=== PATIENT | female | born 1940 | race Hispanic/Latino ===

== ENCOUNTER 2017-08-29 06:43 | Day surgery (SDC) | payer MEDICARE, BC ==
[2017-08-28 13:05] VITALS: BMI 31.8
[2017-08-29 07:19] LABS: #Basophils 0.1 thou/uL (0.0-0.2); #Eosinphils 0.1 thou/uL (0.0-0.7); #Lymphocytes 2.4 thou/uL (1.20-3.40); #Monocytes 0.6 thou/uL (0.11-0.59); #Neutrophils 5.7 thou/uL (1.40-6.50); %Basophils 0.9 % (0.0-1.0); %Lymphocytes 27.4 % (21.0-51.0); %Monocytes 6.8 % (0.0-10.0); %Neutrophils 63.9 % (42.0-75.0); Hemoglobin 13.8 g/dL (12.0-16.0); Mean Corpuscular HGB CONC 32.4 g/dL (32.0-36.0); Mean Corpuscular Hemoglobin 28.9 pg (27.0-31.0); Mean Corpuscular Volume 89.4 fl (81.0-99.0); Mean Platelet Volume 7.9 fL (7.4-10.4); Platelet Count 255 thou/uL (130-400); RBC Distribution Width 13.6 % (11.5-14.5); Red Blood Cell (RBC) Count 4.77 mill/uL (4.20-5.40); White Blood Cell (WBC) Count 8.9 thou/uL (4.8-10.8)
[2017-08-29] MEDS ORDERED: Promethazine 25 MG TAB ONE (07:19)
[2017-08-29] MEDS ORDERED: Diazepam 5 MG TAB ONE (07:19)
[2017-08-29 07:27] LABS: INR-International Normal Ratio 1.3; PTT 31.9 SEC (22.9-36.1); Prothrombin Time 16.1 SEC (12.0-14.7)
[2017-08-29 07:45] LABS: ALT (SGPT) 12 U/L (8-55); AST (SGOT) 15 U/L (5-34); Albumin 4.2 g/dL (3.4-4.8); Alkaline Phosphatase 69 U/L (40-150); Anion Gap 11 mmol/L (10-20); BUN (Urea Nitrogen) 12 mg/dL (9.8-20.1); Bilirubin, Total 0.6 mg/dL (0.2-1.2); Calc. Creatinine Clearance 82 mL/min (70-130); Calcium 9.5 mg/dL (7.8-10.44); Carbon Dioxide 25 mmol/L (23-31); Cardiac Risk 3.1 (Less than 4.5); Chloride 107 mmol/L (98-107); Cholesterol 133 mg/dl (< 200 Desired); Estimated GFR-MDRD 72; Globulin 2.9 g/dL (2.4-3.5); Glucose 144 mg/dL (83-110); HDL Cholesterol 43 mg/dL (>60 Neg Risk); LDL Cholesterol, Calculated 65 mg/dL; Potassium 4.2 mmol/L (3.5-5.1); Protein, Total 7.1 g/dL (6.0-8.3); Sodium 139 mmol/L (136-145); Triglycerides 127 mg/dL (Less than 150)
[2017-08-29] MEDS ORDERED: Diazepam 5 MG TAB PO SCH (07:45)
[2017-08-29] MEDS ORDERED: Sodium Chloride 0.9% 1,000 ML IV SCH (07:45)
[2017-08-29] MEDS ORDERED: Promethazine 25 MG TAB PO SCH (07:45)
[2017-08-29] MEDS ORDERED: HOLD HYPOGLYCEMIC MEDS AM OF CATH FS SCH (07:45)
[2017-08-29] MEDS ORDERED: Verapamil 5 MG/2 ML VIAL ONE (11:51)
[2017-08-29] MEDS ORDERED: Heparin 10,000 UNITS/1 ML VIAL ONE (11:51)
[2017-08-29] MEDS ORDERED: Nitroglycerin 100MG/250ML BOT 250 ML ONE (11:51)
[2017-08-29] MEDS ORDERED: Midazolam HCl 2 mg/2 ml Vial ONE (11:52)
[2017-08-29] MEDS ORDERED: Fentanyl 100 MCG/2 ML VIAL ONE (11:52)
--- NOTE | 2017-08-29 17:11 | RAD ---
PORTABLE AP CHEST X-RAY 08/29/17 HISTORY: Preoperative evaluation. COMPARISON: 11/06/16 FINDINGS: The cardiac silhouette and pulmonary vasculature are within normal limits. Right hemidiaphragm remain s mildly elevated. Lungs are clear. There has been no interval change from the prior study. IMPRESSION: No acute cardiopulmonary process. POS: [facility]
--- NOTE | 2017-08-29 19:40 | CON ---
DATE OF CONSULTATION: 08/29/2017 HISTORY OF PRESENT ILLNESS: Ms. Manzano was admitted for an elective cardiac catheterization. She vargas s a history of atrial fibrillation and takes Eliquis. She last took her Eliquis on 08/28/2017. She also has a history of recent ventricular tachycardia which led to her having cardiac catheterizat ion today. She has a history of coronary artery disease, status post intervention to her LAD and rig ht coronary artery. Echocardiogram showed ejection fraction of approximately 45%. Her stress test s howed lateral wall scar. Cardiac catheterization today shows severe LAD, right coronary artery, and circumflex stenoses. Ejec tion fraction on ventriculogram is approximately 45%. I have been asked to see her to discuss [place] bypass grafting. Potential targets include an LAD, PDA and OM. PAST MEDICAL HISTORY: 1. Hypertension. 2. Atrial fibrillation. 3. Coronary artery disease. 4. Dyslipidemia. 5. Diabetes mellitus. PAST SURGICAL HISTORY: None. CURRENT MEDICATIONS: 1. Metformin 500 mg b.i.d. 2. Metoprolol 25 mg every day. 3. Aspirin 81 mg daily. 4. Eliquis 5 mg b.i.d. 5. Crestor 20 mg at bedtime. 6. Lisinopril 20 mg every day. ALLERGIES: None. SOCIAL HISTORY: She does not use tobacco. She lives with multiple family members. REVIEW OF SYSTEMS: Ten point review of system is performed and is negative except as above. PHYSICAL EXAMINATION: GENERAL: Well-developed, well-nourished woman, resting comfortably in the recovery room. VITAL SIGNS: Her heart rate is 80 and regular, blood pressure is 176/82. HEENT: Sclerae nonicteric. Pupils equal, round bilaterally. NECK: Supple, without bruit. CHEST: Clear bilaterally. HEART: Rhythm is regular, without murmur. ABDOMEN: Soft and nontender, without mass. EXTREMITIES: No edema. VASCULAR: Palpable carotid, radial, femoral, and dorsalis pedis pulses bilaterally. VENOUS: There are no venous varicosities or venous stasis changes. LYMPHATICS: No lymphedema or lymphadenopathy. PSYCHIATRIC: The patient is awake, alert, and oriented to person, place, and time. LABORATORY DATA: Creatinine is 0.78, potassium is 4.2. Hemoglobin is 13.8, platelet count 255,000. ASSESSMENT AND PLAN: This is a pleasant 76-year-old diabetic woman status post multiple intervention s with recurrent coronary artery disease. She has had increasing levels of fatigue and shortness of breath at home. Coronary bypass grafting has been recommended. She will need to be off her Eliquis for 5 days prior to surgery. We have planned for elective admission on Sunday and bypass as above.
--- NOTE | 2017-08-30 00:53 | EKG ---
Test Reason : PREOP Blood Pressure : / mmHG Vent. Rate : 066 BPM Atrial Rate : 066 BPM P-R Int : 174 ms QRS Dur : 090 ms QT Int : 430 ms P-R-T Axes : 000 015 -45 degrees QTc Int : 450 ms Normal sinus rhythm Nonspecific T wave abnormality Abnormal ECG When compared with ECG of 06-NOV-2016 20:10, Non-specific change in ST segment in Inferior leads Nonspecific T wave abnormality now evident in Inferior leads T wave inversion now evident in Lateral leads Confirmed by FRANCIS RUANO, DR. Huerta ([id number]) on 08/30/2017 12:52:52 AM Referred By: KYE Confirmed By:DR. Deanna BLANCO MD
== END 2017-08-29 17:14 | disposition home or self-care (01) ==
LOC: CCL 06:43
PROVIDERS: ATTEND Internal Medicine Cardiovascular Disease
DX: I47.2 Ventricular tachycardia (principal); I10 Essential (primary) hypertension; I48.0 Paroxysmal atrial fibrillation; E11.9 Type 2 diabetes mellitus without complications; E78.5 Hyperlipidemia, unspecified; R06.02 Shortness of breath; Z82.49 Family history of ischemic heart disease and other diseases of the circulatory system; Z79.01 Long term (current) use of anticoagulants; Z79.899 Other long term (current) drug therapy; Z79.84 Long term (current) use of oral hypoglycemic drugs
CPT/HCPCS: 71045; 80053; 80061; 85025; 85610; 85730; 93005; 93458; C1769 ×2; 93010; 99152; J1644; J2250; J3010

== ENCOUNTER 2017-08-31 11:59 | Outpatient (CLI) | payer MEDICARE, BC | END 2017-08-31 12:00 | disposition home or self-care (01) | LOC: LABBT 11:59 | PROVIDERS: ATTEND Thoracic Surgery (Cardiothoracic Vascular Surgery) | DX: Z01.812 Encounter for preprocedural laboratory examination (principal); I25.10 Atherosclerotic heart disease of native coronary artery without angina pectoris | CPT/HCPCS: 86850; 86900; 86901 ==

== ENCOUNTER 2017-09-03 05:46 | Inpatient (IN) | payer MEDICARE, BC ==
[2017-09-03] MEDS ORDERED: CEFAZOLIN/Water 2 GM/20 ML SYRINGE ONE (06:20)
[2017-09-03] MEDS ORDERED: Albumin 5% 500 ML ONE (06:40)
[2017-09-03] MEDS ORDERED: Heparin 10,000 UNITS/1 ML VIAL 30,000 UNITS in Sodium Chloride 0.9% 1,000 ML FS SCH (07:00)
[2017-09-03] MEDS ORDERED: Fentanyl 100 MCG/2 ML VIAL ONE ×2 (07:09)
[2017-09-03] MEDS ORDERED: Midazolam HCl 5 mg/5 ml Vial ONE (07:10)
[2017-09-03] MEDS ORDERED: Insulin Regular 300 UNITS/3 ML VIAL ONE (07:10)
[2017-09-03] MEDS ORDERED: Phenylephrine 10 MG/NS 250 ML 0 ML ONE (07:10)
[2017-09-03] MEDS ORDERED: Vecuronium 10 MG VIAL ONE ×2 (10:01→15:48)
[2017-09-03] MEDS ORDERED: Bisacodyl 5 MG TAB PO PRN (12:35)
[2017-09-03] MEDS ORDERED: Hetastarch 6% 500 ML 500 ML IVPB PRN (12:35)
[2017-09-03] MEDS ORDERED: Norepinephrine 8 MG/0.9% NS 250 ML IVPB PRN (12:35)
[2017-09-03] MEDS ORDERED: Acetaminophen 325 MG TAB PO PRN (12:35)
[2017-09-03] MEDS ORDERED: Promethazine HCl 25 MG/ML VIAL IM PRN (12:35)
[2017-09-03] MEDS ORDERED: Nitroglycerin 50 MG/250 ML BOT 250 ML IVPB PRN (12:35)
[2017-09-03] MEDS ORDERED: D5 1/2 NS w/20 mEq KCL 1,000 ML IV SCH (12:35)
[2017-09-03] MEDS ORDERED: Fentanyl 100 MCG/2 ML VIAL SLOW IVP PRN ×2 (12:35)
[2017-09-03] MEDS ORDERED: Morphine 4 MG/ML Carpuject SLOW IVP PRN (12:35)
[2017-09-03] MEDS ORDERED: hydrALAZINE 20 MG/ML VIAL SLOW IVP PRN (12:35)
[2017-09-03] MEDS ORDERED: Guaifenesin DM 100-10/5 ML UDCUP PO PRN (12:35)
[2017-09-03] MEDS ORDERED: HYDROcodone/Acetaminophen 5/325 mg Tablet PO PRN (12:35)
[2017-09-03] MEDS ORDERED: Mag-Al 1200 mg/1200 mg/30 ML UDCUP PO PRN (12:35)
[2017-09-03] MEDS ORDERED: Bisacodyl 10 MG SUPP PR PRN (12:35)
[2017-09-03] MEDS ORDERED: Post-Op Insulin Drip Protocol IVPB ONE (12:35)
[2017-09-03] MEDS ORDERED: Dextrose 5% in Water 1,000 ML IV PRN (12:44)
[2017-09-03] MEDS ORDERED: Dextrose 50% Abboject 50 ML SYRINGE SLOW IVP PRN (12:44)
[2017-09-03] MEDS ORDERED: Magnesium 2 GM/NS 0.9% 100 ML 2 GM in Premix Bag 1 BAG IVPB SCH (12:45)
[2017-09-03 13:05] LABS: Anion Gap 13 mmol/L (10-20); BUN (Urea Nitrogen) 11 mg/dL (9.8-20.1); Calc. Creatinine Clearance 95 mL/min (70-130); Carbon Dioxide 21 mmol/L (23-31); Chloride 113 mmol/L (98-107); Estimated GFR-MDRD 85; Glucose 133 mg/dL (83-110); Hemoglobin 10.7 g/dL (12.0-16.0); Mean Corpuscular HGB CONC 32.4 g/dL (32.0-36.0); Mean Corpuscular Hemoglobin 29.4 pg (27.0-31.0); Mean Corpuscular Volume 90.6 fl (81.0-99.0); Mean Platelet Volume 8.1 fL (7.4-10.4); Platelet Count 204 thou/uL (130-400); Potassium 3.9 mmol/L (3.5-5.1); RBC Distribution Width 13.8 % (11.5-14.5); Red Blood Cell (RBC) Count 3.64 mill/uL (4.20-5.40); Sodium 143 mmol/L (136-145); White Blood Cell (WBC) Count 24.1 thou/uL (4.8-10.8)
[2017-09-03 13:10] LABS: INR-International Normal Ratio 1.5; PTT 33.5 SEC (22.9-36.1)
[2017-09-03] MEDS: Insulin Regular 300 UNITS/3 ML VIAL SC PRN (13:11)
[2017-09-03] MEDS: Ondansetron HCl/PF 4 MG/2 ML Vial IVP PRN ×2 (13:14→21:31)
[2017-09-03 13:17] LABS: Actual Bicarbonate (HCO3a) 21.4 mEq/L (22-26); Base Excess (BEa) -3.8 mEq/L (0 (+/-) 2.5); CO2 Tension 39.6 mmHg (35.0-45.0); Hemoglobin (Hb) 11.2 g/dL (12.0-16.0); O2 Tension (PaO2) 142.9 mmHg (80.0-100.0); pH, Arterial 7.35 (7.35-7.45)
[2017-09-03 13:18] LABS: Calcium, Ionized 1.1 mmol/L (1.12-1.30); Puncture Site ALINE
[2017-09-03 13:22] LABS: Band 15 % (5-11); Lymphocytes 5 % (21-51); MDiff Complete? YES; Metamyelocyte 2 % (0-0); Monocytes 8 % (0-10); Neutrophil 69 % (42-75); PLT Morphology Comment Appears Adequate; RBC Morphology Normal
[2017-09-03] MEDS ORDERED: Ketorolac Tromethamine 30 MG/ML VIAL IVP SCH (13:30)
[2017-09-03] MEDS ORDERED: Norepinephrine 8 MG in Dextrose 5% in Water 250 ML IVPB PRN ×2 (13:59)
[2017-09-03] MEDS: CEFAZOLIN/Water 2 GM/20 ML SYRINGE SLOW IVP SCH ×2 (14:20→21:35)
--- NOTE | 2017-09-03 14:30 | OP ---
DATE OF OPERATION: 09/03/2017 PREOPERATIVE DIAGNOSES: 1. Coronary artery disease/history of paroxysmal atrial fibrillation. 2. Diabetes mellitus. 3. Hypertension. 4. Hyperlipidemia. POSTOPERATIVE DIAGNOSES: 1. Coronary artery disease/history of paroxysmal atrial fibrillation. 2. Diabetes mellitus. 3. Hypertension. 4. Hyperlipidemia. PROCEDURES: 1. Epicardial maze with ligation of left atrial appendage. 2. Coronary artery bypass grafting x3 - A. Left internal mammary artery to 1.25 mm diffusely diseased LAD - good conduit. B. Reverse saphenous vein to 2.0 mm diffusely diseased OM - good conduit. 3. Reverse saphenous vein to 1.25 mm diffusely diseased PDA - good conduit. SURGEON: Blaine Charles M.D. and Joaquin David M.D. ANESTHESIA: General endotracheal - Dr. González Burch. PUMP TIME: 65 minutes. CROSS-CLAMP TIME: 33 minutes. LOW CORE TEMPERATURE: 32 degrees Celsius. KENNEL AIDE: Arelis Erazo. DRAINS: 24-[place] chest tubes x2. DRIPS: None. TRANSFUSIONS: None. DESCRIPTION OF PROCEDURE: After consent was obtained, the patient was brought to the operating room and placed in supine position on the operating room table. Appropriate anesthetic monitor was placed and general endotracheal anesthesia induced. Chest, abdomen, and legs were prepped and draped in [facility] sterile fashion. Greater saphenous vein was harvested from both legs to obtain adequate length o f saphenous vein that was usable for coronary artery bypass grafting. Wounds were irrigated and clos ed in layers. Median sternotomy was performed. Left internal mammary artery was harvested as a pedi ebony graft. The patient was systemically heparinized and distal pedicle divided and infused with papa verine. Thymic fat and pericardium were divided with electrocautery. Pericardial stay sutures were placed. Aortic and atrial cannulation was performed. After adequate heparinization, the patient was placed on cardiopulmonary bypass. Distal targets were marked. The aortic cross-clamp was applied a nd antegrade sanguinous cardioplegic arrest obtained. One liter of antegrade cold cardioplegia was g iven. The [place] cardioplegia was used. Topical cold solution was used. Reversed saphenous vein was anastomosed to the PDA in end-to-side fashion with running 7-0 Prolene suture. Anastomosis was t ested and was hemostatic. Reversed saphenous vein was anastomosed to the OM in end-to-side fashion w ith running 7-0 Prolene suture. Anastomosis was tested and was hemostatic. The left atrial pulmonar y venous junction and was ablated on both the left and right pulmonary veins x2 with the edotronic ep icardial ablation device. Left atrial appendage was ablated x1. Atrial appendage was then ligated w ith running dual-layered 4-0 Prolene suture. Mammary artery was brought through a window in the anna cardium and anastomosed to the distal LAD in end-to-side fashion with running 7-0 Prolene suture. On release of the mammary clamp, there was good hooding in the anastomosis and good distal flow. Pedic le was secured with interrupted 6-0 Prolene suture. Cross-clamp was removed and partial occluding cl amp placed. Saphenous veins were anastomosed individual punch sites with running 6-0 Prolene suture. Partial occluding clamp was removed and grafts deaired. Anastomoses were inspected for hemostasis, which was good. The patient was warmed and weaned from cardiopulmonary bypass. After resumption of sinus rhythm, good hemodynamics, and temperature greater than 36.5, bypass was discontinued. Transf usions were given. Protamine was administered. Decannulation was performed and pursestring sutures secured. Twenty-four [place] chest tubes were placed in the mediastinum x2. After adequate hemostasi s had been obtained, the sternum was closed with #7 wire. Sternum was treated with platelet-rich johnny sma and then wires were twisted. Wounds were irrigated, treated with platelet-poor plasma, and close d in layers. The patient tolerated the procedure well, and was transferred to the intensive care uni t in stable, but critical condition.
--- NOTE | 2017-09-03 14:39 | RAD ---
PORTABLE CHEST: History: Post op sternotomy follow up. Comparison: 05-29-18 FINDINGS/IMPRESSION: Post op sternotomy wires are noted. ET tube is in place with tip above the derek. Central line overl ies the SVC. The lungs appear well aerated. There is patchy atelectasis and/or infiltrate in the left lung base and there is suggestion of small left effusion. POS: [facility]
[2017-09-03] MEDS: Potassium Chloride 20 MEQ/100 ML PREMIX BAG IVPB PRN (15:13)
[2017-09-03] MEDS ORDERED: Nitroglycerin 50 MG/250 ML BOT ONE (15:48)
[2017-09-03] MEDS ORDERED: Papaverine 60 MG/2 ML VIAL ONE (15:48)
[2017-09-03] MEDS ORDERED: Protamine Sulfate 250 MG/25 ML VIAL ONE (15:48)
[2017-09-03] MEDS ORDERED: Cardioplegic Soln 1,000 ML BAG ONE (15:48)
[2017-09-03] MEDS ORDERED: Aminocaproic Acid 5 GM/20 ML VIAL ONE (15:48)
[2017-09-03] MEDS ORDERED: Heparin 5,000 UNITS/ML VIAL ONE (15:48)
[2017-09-03] MEDS ORDERED: Magnesium 5 GM/10 ML VIAL ONE (15:48)
[2017-09-03] MEDS ORDERED: Lidocaine 2% PF 100 mg/5 ml Syringe ONE (15:48)
[2017-09-03] MEDS ORDERED: PHENYLEPHRINE-NS 100 MCG/ML 10 ML SYRINGE ONE (15:48)
[2017-09-03] MEDS ORDERED: Potassium Chloride 60 MEQ/30 ML VIAL ONE (15:48)
[2017-09-03] MEDS ORDERED: Heparin 30,000 units/30 ml VIAL ONE (15:48)
[2017-09-03] MEDS ORDERED: Thrombin 5000 UNITS/5 ML VIAL ONE (15:48)
[2017-09-03] MEDS ORDERED: Propofol 200 MG/20 ML VIAL ONE (15:48)
[2017-09-03] MEDS ORDERED: Sodium Bicarb 50 MEQ/50 ML Abboject 8.4% SYRINGE ONE (15:48)
[2017-09-03] MEDS ORDERED: Calcium Chloride 1 GM/10 ML Abboject SYRINGE ONE (15:48)
[2017-09-03] MEDS ORDERED: Lidocaine 1% PF 5 ML VIAL ONE (15:48)
[2017-09-03 17:16] LABS: Actual Bicarbonate (HCO3a) 20.8 mEq/L (22-26); Base Excess (BEa) -3.6 mEq/L (0 (+/-) 2.5); CO2 Tension 34.8 mmHg (35.0-45.0); Calcium, Ionized 1.1 mmol/L (1.12-1.30); Hemoglobin (Hb) 9.7 g/dL (12.0-16.0); O2 Tension (PaO2) 220.8 mmHg (80.0-100.0); Puncture Site ALINE; pH, Arterial 7.39 (7.35-7.45)
[2017-09-03] MEDS: Ketorolac Tromethamine 30 MG/ML VIAL IVP SCH (18:30)
[2017-09-03] MEDS ORDERED: Famotidine/PF 20 mg/2ml Vial SLOW IVP SCH (21:00)
[2017-09-03] MEDS: Latanoprost 0.005% Ophth Soln 2.5 ml Bottle EA EYE SCH (21:30)
[2017-09-04] MEDS: Ketorolac Tromethamine 30 MG/ML VIAL IVP SCH ×4 (00:31→17:42)
[2017-09-04 05:33] LABS: #Lymphocytes 1.3 thou/uL (1.20-3.40); #Monocytes 1.3 thou/uL (0.11-0.59); #Neutrophils 10.7 thou/uL (1.40-6.50); Hemoglobin 9.4 g/dL (12.0-16.0); Mean Corpuscular Hemoglobin 28.4 pg (27.0-31.0); Mean Corpuscular Volume 91.6 fl (81.0-99.0); Mean Platelet Volume 8.5 fL (7.4-10.4); Platelet Count 178 thou/uL (130-400); RBC Distribution Width 13.9 % (11.5-14.5); Red Blood Cell (RBC) Count 3.31 mill/uL (4.20-5.40); White Blood Cell (WBC) Count 13.4 thou/uL (4.8-10.8)
[2017-09-04] MEDS: CEFAZOLIN/Water 2 GM/20 ML SYRINGE SLOW IVP SCH (05:34)
[2017-09-04 05:58] LABS: Anion Gap 10 mmol/L (10-20); BUN (Urea Nitrogen) 13 mg/dL (9.8-20.1); Calc. Creatinine Clearance 90 mL/min (70-130); Calcium 8.2 mg/dL (7.8-10.44); Carbon Dioxide 23 mmol/L (23-31); Chloride 112 mmol/L (98-107); Estimated GFR-MDRD 78; Glucose 124 mg/dL (83-110); Potassium 3.8 mmol/L (3.5-5.1); Sodium 141 mmol/L (136-145)
[2017-09-04] MEDS: Ondansetron HCl/PF 4 MG/2 ML Vial IVP PRN (06:03)
[2017-09-04 06:17] VITALS: BMI 32.4
[2017-09-04] MEDS: Metoclopramide HCl 10 MG/2 ML VIAL IVP SCH ×3 (07:57→19:05)
[2017-09-04] MEDS: HYDROcodone/Acetaminophen 5/325 mg Tablet PO PRN ×2 (08:24→21:43)
[2017-09-04] MEDS: Potassium Chloride 20 MEQ/100 ML PREMIX BAG IVPB PRN (08:34)
--- NOTE | 2017-09-04 08:45 | RAD ---
AP CHEST: History: Post open heart surgery. Date: 09-04-17 Comparison: 09-03-17 FINDINGS: AP chest demonstrates interval extubation of the patient. Sternotomy wires are seen. A right subclavi an central line is in place. There is a density over the left lung base compatible with a left sided pleural effusion. Pulmonary vascular congestion is noted. No other significant interval change is see n. There is also a left sided chest tube present. IMPRESSION: 1. Left sided chest tube in place with right subclavian central line. 2. Left sided pleural effusion with areas of opacity seen in the left lung base compatible with atele ctasis or pneumonia. POS: [facility]
[2017-09-04] MEDS ORDERED: Magnesium 2 GM/NS 0.9% 100 ML 2 GM in Premix Bag 1 BAG IVPB SCH (09:00)
[2017-09-04] MEDS ORDERED: Aspirin 325 MG TAB PO SCH (09:00)
[2017-09-04] MEDS ORDERED: Famotidine 20 MG TAB PO SCH (09:00)
--- NOTE | 2017-09-04 10:31 | PRG ---
DATE OF SERVICE: 09/04/2017 SUBJECTIVE: Ms. Manzano has been extubated. She is in good spirits. Chest tube has also been remove d. OBJECTIVE: CURRENT VITAL SIGNS: Blood pressure 120/48, temperature afebrile. LUNGS: Clear to auscultation. CARDIAC: Regular rate and rhythm. ABDOMEN: Soft, nontender, nondistended. EXTREMITIES: No edema. IMPRESSION: 1. Coronary artery disease. 2. Status post bypass surgery. 3. Diabetes mellitus. 4. Hypertension. RECOMMENDATIONS: 1. Add low-dose beta daly therapy. 2. Add statin therapy. 3. Routine ICU care. 4. Ambulation and incentive spirometry.
--- NOTE | 2017-09-04 11:15 | CON ---
DATE OF CONSULTATION: 09/04/2017 REASON FOR CONSULTATION: Cardiac care for recent bypass surgery. HISTORY OF PRESENT ILLNESS: Ms. Manzano is a very pleasant 76-year-old woman who was seen and evaluat ed in the past. She recently had coronary angiography and was found to have severe multivessel disea se. Bypass surgery was recommended. She underwent 4-vessel bypass by Dr. Blaine Charles on 8. She also underwent maze procedure with ligation of left atrial appendage. She underwent bypass s urgery with [employer] to the LAD, saphenous vein graft to OM, and saphenous vein graft to PDA. She is off all pressors. PAST MEDICAL HISTORY: Hyperlipidemia, hypertension, CAD, and obesity. PAST SURGICAL HISTORY: CAD status post stent placement to the LAD and right coronary artery. PTCA t o a diagonal branch. ALLERGIES: None. HOME MEDICATIONS: Include metformin, lansoprazole, metoprolol, aspirin, Eliquis, Crestor, and lisino pril. REVIEW OF SYSTEMS: Ten point review of systems unobtainable. She is currently intubated. PHYSICAL EXAMINATION: VITAL SIGNS: Blood pressure 114/50, pulse 90, temperature afebrile. GENERAL: She is currently intubated and sedated. NEUROLOGIC: The patient is alert and oriented times 3 with no focal neurologic deficits. HEENT: Sclerae without icterus. Mouth has moist mucous membranes with normal pallor. NECK: No JVD. Carotid upstroke brisk. No bruits bilaterally. LUNGS: Clear to auscultation with unlabored respirations. BACK: No scoliosis or kyphosis. CARDIAC: Regular rate and rhythm with normal S1 and S2. No S3 or S4 noted. No significant rubs, murmurs, thrills, or gallops noted throughout the precordium. PMI is not displaced. There is no parasternal heave. ABDOMEN: Soft, nontender, nondistended. No peritoneal signs present. No hepatosplenomegaly. No abnormal striae. EXTREMITIES: 2+ femoral and 2+ dorsalis pedis pulses. No cyanosis, clubbing, or edema. SKIN: No gross abnormalities. IMPRESSION: 1. Coronary artery disease. 2. Status post bypass surgery. 3. Diabetes mellitus. 4. Hypertension. RECOMMENDATIONS: 1. Routine ICU care and vent support. 2. Wean when appropriate. 3. Add beta daly therapy and statin therapy when extubated. We will continue to follow with you.
[2017-09-04] MEDS: Insulin Regular 300 UNITS/3 ML VIAL SC PRN ×2 (13:05→17:31)
[2017-09-04] MEDS ORDERED: Bisacodyl 10 MG SUPP PR PRN (20:45)
[2017-09-04] MEDS ORDERED: Artificial Tears 18 DROP/0.9 ML EA EYE PRN (20:45)
[2017-09-04] MEDS ORDERED: Zolpidem Tartrate 5 MG TAB PO PRN (20:45)
[2017-09-04] MEDS ORDERED: Bisacodyl 5 MG TAB PO PRN (20:45)
[2017-09-04] MEDS ORDERED: Mineral Oil ENEMA PR PRN (20:45)
[2017-09-04] MEDS ORDERED: Mag-Al 1200 mg/1200 mg/30 ML UDCUP PO PRN (20:45)
[2017-09-04] MEDS ORDERED: diphenhydrAMINE 25 MG CAP PO PRN (20:45)
[2017-09-04] MEDS ORDERED: Guaifenesin DM 100-10/5 ML UDCUP PO PRN (20:45)
[2017-09-04] MEDS ORDERED: Atorvastatin Calcium 40 MG TAB PO SCH (21:00)
[2017-09-04] MEDS ORDERED: Dextrose 5% in Water 1,000 ML IV PRN (21:15)
[2017-09-04] MEDS ORDERED: Dextrose 50% Abboject 50 ML SYRINGE SLOW IVP PRN (21:15)
[2017-09-04] MEDS: Rosuvastatin 20 MG TAB PO SCH (21:43)
[2017-09-04] MEDS: Latanoprost 0.005% Ophth Soln 2.5 ml Bottle EA EYE SCH (21:45)
--- NOTE | 2017-09-04 23:39 | EKG ---
Test Reason : POST CABG Blood Pressure : / mmHG Vent. Rate : 080 BPM Atrial Rate : 080 BPM P-R Int : 144 ms QRS Dur : 098 ms QT Int : 456 ms P-R-T Axes : -71 028 127 degrees QTc Int : 525 ms Unusual P axis, possible ectopic atrial rhythm T wave abnormality, consider lateral ischemia Prolonged QT Abnormal ECG When compared with ECG of 29-AUG-2017 07:38, Ectopic atrial rhythm has replaced Sinus rhythm QT has lengthened Confirmed by Jefe DESIR ([id number]) on 09/04/2017 11:39:11 PM Referred By: Haleigh SWAIN Confirmed By:Jefe DESIR
[2017-09-05] MEDS: Ketorolac Tromethamine 30 MG/ML VIAL IVP SCH ×4 (00:36→18:00)
[2017-09-05] MEDS: Metoclopramide HCl 10 MG/2 ML VIAL IVP SCH ×3 (00:37→13:27)
--- NOTE | 2017-09-05 08:52 | PRG ---
DATE OF SERVICE: 09/05/2017 SUBJECTIVE: Ms. Manzano is doing well. She has been transferred out of the ICU and is on telemetry m onitoring. She states she has been up into a chair. She is using incentive spirometry. She remains in sinus rhythm. PHYSICAL EXAMINATION: VITAL SIGNS: Blood pressure 129/61, pulse 79, temperature 98.2. LUNGS: Lungs are clear to auscultation. HEART: Regular rate and rhythm. ABDOMEN: Soft, nontender, nondistended. EXTREMITIES: No edema. PERTINENT LABORATORY: None today. IMPRESSION: 1. Coronary artery disease. 2. Status post bypass surgery. RECOMMENDATIONS: 1. Continue beta-dlay therapy and statin treatment. 2. Incentive spirometry and cardiac rehab.
[2017-09-05] MEDS: Aspirin 325 mg Enteric Coated Tablet PO SCH (09:15)
[2017-09-05] MEDS ORDERED: Furosemide 40 MG/4 ML VIAL SLOW IVP SCH (13:00)
[2017-09-05] MEDS: Latanoprost 0.005% Ophth Soln 2.5 ml Bottle EA EYE SCH (21:20)
[2017-09-05] MEDS: HYDROcodone/Acetaminophen 5/325 mg Tablet PO PRN (21:21)
[2017-09-05] MEDS: Rosuvastatin 20 MG TAB PO SCH (21:21)
[2017-09-05] MEDS: Insulin Regular 300 UNITS/3 ML VIAL SC PRN (21:22)
[2017-09-06] MEDS: Ketorolac Tromethamine 30 MG/ML VIAL IVP SCH ×4 (00:11→17:55)
[2017-09-06] MEDS: Aspirin 325 mg Enteric Coated Tablet PO SCH (08:44)
[2017-09-06] MEDS: Insulin Regular 300 UNITS/3 ML VIAL SC PRN ×2 (11:33→17:56)
--- NOTE | 2017-09-06 14:01 | PRG ---
DATE OF SERVICE: 09/06/2017 SUBJECTIVE: Ms. Manzano is doing well. She states she was ambulating without issues or difficulty. OBJECTIVE: VITAL SIGNS: Blood pressure 127/60, pulse 90, temperature 98.1. LUNGS: Clear to auscultation. HEART: Regular rate and rhythm. ABDOMEN: Soft, nontender, nondistended. EXTREMITIES: No edema. IMPRESSION: 1. Coronary artery disease. 2. Status post bypass surgery. RECOMMENDATIONS: 1. Continue beta daly therapy, statin treatment. 2. Incentive spirometry and rehab. 3. Home soon.
[2017-09-06] MEDS: Rosuvastatin 20 MG TAB PO SCH (21:16)
[2017-09-06] MEDS: Latanoprost 0.005% Ophth Soln 2.5 ml Bottle EA EYE SCH (21:16)
[2017-09-07] MEDS: Aspirin 325 mg Enteric Coated Tablet PO SCH (09:23)
--- NOTE | 2017-09-07 14:33 | DIS ---
DATE OF ADMISSION: 09/03/2017 DATE OF DISCHARGE: 09/07/2017 DIAGNOSES: 1. Coronary artery disease. 2. Diabetes mellitus. 3. Hyperlipidemia. 4. Hypertension. PROCEDURES: 1. Coronary artery bypass grafting x3. 2. Left internal mammary artery to LAD. 2. Reversed saphenous vein to OM. 3. Reversed saphenous vein to PDA. DESCRIPTION OF HOSPITAL STAY: Ms. Manzano was admitted for elective coronary bypass grafting. She vargas s done well postoperatively and being discharged to home in good condition to follow up with me in [address] [place] in a month. DISCHARGE MEDICATIONS: Include, 1. Aspirin 325 mg q. day. 2. Lisinopril 10 mg q. day. 3. Metformin 500 mg q. day. 4. Metoprolol 12.5 mg b.i.d. 5. Crestor 20 mg at bedtime.
--- NOTE | 2017-09-07 15:00 | PRG ---
DATE OF SERVICE: 09/07/2017 SUBJECTIVE: Ms. Manzano is doing well. No chest pain or pressure noted. She is ambulating. OBJECTIVE: VITAL SIGNS: Blood pressure 133/65, pulse 93 and temperature 98.9. LUNGS: Clear to auscultation. HEART: Regular rate and rhythm. ABDOMEN: Soft, nontender and nondistended. EXTREMITIES: No edema. IMPRESSION: 1. Coronary artery disease. 2. Status post bypass surgery. RECOMMENDATIONS: From a CV standpoint, she is on appropriate medical therapy. Continue 24 hours in ambulation.
[2017-09-07 16:38] VITALS: BP 137/66; TEMP 99.1
[2017-09-11 08:37] LABS: CO2 Tension 28.2 mmHg (35.0-45.0); O2 Tension (PaO2) 234.6 mmHg (80.0-100.0); pH, Arterial 7.49 (7.35-7.45)
[2017-09-11 08:41] LABS: Actual Bicarbonate (HCO3a) 20.9 mEq/L (22-26); Base Excess (BEa) -1.3 mEq/L (0 (+/-) 2.5); Hematocrit-ABG 39.1 % (36.0-47.0); Hemoglobin (Hb) 12.9 g/dL (12.0-16.0)
[2017-09-11 08:42] LABS: CO2 Tension 35.6 mmHg (35.0-45.0); pH, Arterial 7.38 (7.35-7.45)
[2017-09-11 08:42] LABS: Analyzer IN Cardio OR; Calcium, Ionized 1.2 mmol/L (1.12-1.30); Puncture Site ALINE
[2017-09-11 08:43] LABS: Actual Bicarbonate (HCO3a) 20.7 mEq/L (22-26); Analyzer IN Cardio OR; Base Excess (BEa) -3.8 mEq/L (0 (+/-) 2.5); Calcium, Ionized 1.2 mmol/L (1.12-1.30); Hematocrit-ABG 37.5 % (36.0-47.0); Hemoglobin (Hb) 12.4 g/dL (12.0-16.0); O2 Tension (PaO2) 366.6 mmHg (80.0-100.0); Puncture Site ALINE
[2017-09-11 08:44] LABS: pH, Arterial 7.44 (7.35-7.45)
[2017-09-11 08:45] LABS: Actual Bicarbonate (HCO3a) 23.6 mEq/L (22-26); Base Excess (BEa) -0.3 mEq/L (0 (+/-) 2.5); CO2 Tension 35.3 mmHg (35.0-45.0)
[2017-09-11 08:46] LABS: Hematocrit-ABG 24.7 % (36.0-47.0); Hemoglobin (Hb) 8.5 g/dL (12.0-16.0)
[2017-09-11 08:47] LABS: Actual Bicarbonate (HCO3v) 25 mEq/L (22-26); Analyzer IN Cardio OR
[2017-09-11 08:47] LABS: Analyzer IN Cardio OR; Puncture Site ALINE
[2017-09-11 08:48] LABS: Base Excess -0.3 mEq/L (0 (+/- 2.5)); Calcium, Ionized 0.96 mmol/L (1.16-1.32); Chloride (ABG LAB) 103 mmol/L (98-106); Hematocrit-VBG 24.5 % (35-47); Hemoglobin (Hb) 8.4 g/dL (11.7-16.1); Potassium - ABG Lab 3.7 mmol/L (3.70-5.30); Sodium 140.1 mmol/L (133-146)
[2017-09-11 08:49] LABS: Actual Bicarbonate (HCO3a) 23.7 mEq/L (22-26); Base Excess (BEa) -0.8 mEq/L (0 (+/-) 2.5); CO2 Tension 38.3 mmHg (35.0-45.0); O2 Tension (PaO2) 329.2 mmHg (80.0-100.0); pH, Arterial 7.41 (7.35-7.45)
[2017-09-11 08:50] LABS: Analyzer IN Cardio OR; Hematocrit-ABG 23.5 % (36.0-47.0); Hemoglobin (Hb) 8.2 g/dL (12.0-16.0); Puncture Site ALINE
[2017-09-11 08:51] LABS: Actual Bicarbonate (HCO3a) 23.4 mEq/L (22-26); Base Excess (BEa) -1.4 mEq/L (0 (+/-) 2.5); CO2 Tension 39.5 mmHg (35.0-45.0); Hematocrit-ABG 26.8 % (36.0-47.0); Hemoglobin (Hb) 9.3 g/dL (12.0-16.0); O2 Tension (PaO2) 350.3 mmHg (80.0-100.0); pH, Arterial 7.39 (7.35-7.45)
[2017-09-11 08:52] LABS: Analyzer IN Cardio OR; Calcium, Ionized 1.1 mmol/L (1.12-1.30); Puncture Site ALINE
== END 2017-09-07 16:53 | disposition home or self-care (01) | DRG 229 ==
LOC: SURG A 05:46 → CCU 11:59 → 2NO 09-04 20:03
PROVIDERS: ADMIT Thoracic Surgery (Cardiothoracic Vascular Surgery); ATTEND Thoracic Surgery (Cardiothoracic Vascular Surgery)
PROC: 02100Z9 Bypass Coronary Artery, One Artery from Left Internal Mammary, Open Approach (ICD-10-PCS; principal; 2017-09-03)
PROC: 02580ZZ Destruction of Conduction Mechanism, Open Approach (ICD-10-PCS; 2017-09-03)
PROC: 021109W Bypass Coronary Artery, Two Arteries from Aorta with Autologous Venous Tissue, Open Approach (ICD-10-PCS; 2017-09-03)
PROC: 06BQ0ZZ Excision of Left Saphenous Vein, Open Approach (ICD-10-PCS; 2017-09-03)
PROC: 06BP0ZZ Excision of Right Saphenous Vein, Open Approach (ICD-10-PCS; 2017-09-03)
PROC: 5A1221Z Performance of Cardiac Output, Continuous (ICD-10-PCS; 2017-09-03)
DX: I25.10 Atherosclerotic heart disease of native coronary artery without angina pectoris (principal); I48.0 Paroxysmal atrial fibrillation; E11.9 Type 2 diabetes mellitus without complications; I10 Essential (primary) hypertension; E78.5 Hyperlipidemia, unspecified; E66.9 Obesity, unspecified; Z68.34 Body mass index [BMI] 34.0-34.9, adult; Z79.01 Long term (current) use of anticoagulants; Z79.82 Long term (current) use of aspirin; Z95.5 Presence of coronary angioplasty implant and graft
CPT/HCPCS: 36415; 36416; 36430; 71045; 80048; 82805; 85025; 85610; 85730; 86850; 86900; 86901; 93005; 93010; 93798; 94002; 94150; J1642; J1644; J1815; J1885; J1940; J2001; J2250; J2270; J2405; J2440; J2704; J2720; J2765; J3010; J3370; J3475; J3480; J7050; J7070; P9045; S0017; S0028

== ENCOUNTER 2017-10-03 16:54 | Inpatient (IN) | payer MEDICARE, BC ==
[2017-10-03 18:11] LABS: #Eosinphils 0.1 thou/uL (0.0-0.7); #Lymphocytes 1.6 thou/uL (1.20-3.40); #Monocytes 0.6 thou/uL (0.11-0.59); #Neutrophils 5.8 thou/uL (1.40-6.50); %Basophils 0.3 % (0.0-1.0); %Eosinophils 1.1 % (0.0-10.0); %Lymphocytes 19.4 % (21.0-51.0); %Monocytes 7.6 % (0.0-10.0); %Neutrophils 71.6 % (42.0-75.0); Hemoglobin 8.1 g/dL (12.0-16.0); Mean Corpuscular HGB CONC 30.9 g/dL (32.0-36.0); Mean Corpuscular Hemoglobin 28.8 pg (27.0-31.0); Mean Corpuscular Volume 93.2 fl (81.0-99.0); Platelet Count 360 thou/uL (130-400); Red Blood Cell (RBC) Count 2.82 mill/uL (4.20-5.40); White Blood Cell (WBC) Count 8.1 thou/uL (4.8-10.8)
[2017-10-03 18:20] LABS: Bilirubin Negative (Negative); Blood, Urine Small (Negative); Clarity TURBID (Clear); Glucose, Urine (Dipstick) Negative (Negative); Leukocyte Large (Negative); Nitrite Positive (Negative); Protein, Urine (Dipstick) 100 mg/dL (Neg-Trace); Specific Gravity, Urine 1.022 (1.002-1.036)
[2017-10-03] MEDS ORDERED: Ondansetron HCl/PF 4 MG/2 ML Vial ONE (18:21)
[2017-10-03 18:23] LABS: ALT (SGPT) Less than 7 U/L (8-55); AST (SGOT) 11 U/L (5-34); Albumin 3.7 g/dL (3.4-4.8); Alkaline Phosphatase 129 U/L (40-150); Anion Gap 11 mmol/L (10-20); BUN (Urea Nitrogen) 19 mg/dL (9.8-20.1); Bilirubin, Total 0.3 mg/dL (0.2-1.2); Calc. Creatinine Clearance 0 mL/min (70-130); Calcium 8.8 mg/dL (7.8-10.44); Carbon Dioxide 23 mmol/L (23-31); Chloride 106 mmol/L (98-107); Estimated GFR-MDRD 65; Globulin 2.9 g/dL (2.4-3.5); Glucose 130 mg/dL (83-110); Lipase 24 U/L (8-78); Potassium 3.8 mmol/L (3.5-5.1); Protein, Total 6.6 g/dL (6.0-8.3); Sodium 136 mmol/L (136-145)
[2017-10-03 18:25] LABS: Bacteria/HPF 4+ HPF (None Seen)
[2017-10-03 18:28] LABS: CKMB 0.9 ng/mL (0-6.6); Troponin I 0.019 ng/mL (< 0.028)
[2017-10-03 18:31] LABS: Pathc Cast-AUWi Flag 18.93 (0-2.49)
[2017-10-03 18:54] LABS: Hyaline Casts/LPF NONE SEEN LPF (0-3 Hyaline); Other Casts/LPF None Seen LPF (0-3 Hyaline)
--- NOTE | 2017-10-03 23:15 | HP ---
PRIMARY CARE PHYSICIAN: Dr. Mcfadden. CHIEF COMPLAINT: Burning on urination and also feeling weak and dizzy. HISTORY OF PRESENT ILLNESS: Ms. Manzano is a very pleasant 76-year-old female who was recently admitt ed to our facility for coronary artery disease and she was found to have 3-vessel coronary artery dis ease and underwent a bypass surgery. She was discharged and she says that she began noticing some dy suria and burning when she goes to the bathroom. She says she "always had problems with urination." She also felt some frequency as well as she was having some chills, no fever. She also says that sh tata felt a little bit dizzy and lightheaded as well as weak and for this reason, she came to the emerge ncy room for evaluation. In the ER, she was found to have a urine which was consistent with urinary tract infection as well as she was anemic with a hemoglobin of approximately 8.1. When asked, the pa kingscassandra says that she has had some dark-colored stools a couple of days ago, but denies any abdominal p ain, no hematemesis, and it is noted that she has been on a full-dose aspirin since her discharge fro the hospital. She has no known history of any peptic ulcer disease. REVIEW OF SYSTEMS: Constitutional: There have been no fevers, chills, no night sweats, no weight lo ss. HEENT: No headaches, no dizziness, no visual changes, no sore throat, rhinorrhea, neck pain, no adenopathy. Pulmonary: No hemoptysis, no cough, no wheezing. Cardiovascular: She denies any chest pain. She has had some shortness of breath, but no PND, no ort hopnea. Gastrointestinal: As the history of present illness. Genitourinary: As the history of pre sent illness. Musculoskeletal: No muscle pains, weakness or joint pains. Neurologic: No focal weakness, numbness, no seizures. Psychiatric: No symptoms of anxiety or depre ssion. Skin and Integument: No skin changes. No rash. PAST MEDICAL HISTORY: Significant for coronary artery disease, diabetes mellitus, hyperlipidemia, hy pertension, and urinary incontinence. PAST SURGICAL HISTORY: She has had a 3-vessel bypass. ALLERGIES: No known drug allergies. FAMILY HISTORY: Significant for heart disease in her mother's side of the family. Father has hypert ension. Cancer in her mother, she had some type of lymphoma. SOCIAL HISTORY: She is . She never smoked. She denies any alcohol use. She has 3 children. She wishes to be a DNR. Her daughter and her oldest son for are her surrogate decision makers and her older son is Mark Manzano. CURRENT MEDICATIONS: Include aspirin 325 mg daily, metformin 500 mg once a day, Crestor 20 mg daily and metoprolol 12.5 mg twice a day. PHYSICAL EXAMINATION: GENERAL: She is alert and oriented. She appears to be in no acute distress. VITAL SIGNS: Blood pressure was 130/82, heart rate 88, respiratory rate of 16, temperature is 98.2. HEENT: Her pupils are equal, round, and reactive. Extraocular muscles are intact. Sclerae are anic teric. Throat: No erythema, no exudates. NECK: No adenopathy, no bruits. LUNGS: Clear. There is no wheezing, no rales. CARDIOVASCULAR: She has a normal S1, S2. There is no S3 or S4. No murmurs, clicks or rubs. ABDOMEN: Soft, nontender, nondistended. Positive for bowel sounds. There is no rebound or guarding . EXTREMITIES: There is no clubbing, cyanosis, no edema. NEUROLOGICALLY: The exam is nonfocal. SIGNIFICANT LABORATORY: White blood cell count 8.1, hemoglobin 8.1, hematocrit is 26.3, platelet cou nt is 360. Sodium is 136, potassium 3.8, chloride is 106, CO2 is 23, BUN of 19, creatinine 0.85, glu cose is 130. On urinalysis, it is nitrite positive, large leukocyte esterase, 4+ bacteria and too nu merous to count wbc's. Her stool guaiac was negative. ASSESSMENT AND PLAN: This is a pleasant 76-year-old female that presents to the emergency room with weakness and findings consistent with urinary tract infection. She also has anemia which is normocyt ic and slightly lower than her hemoglobin when she was discharged from the hospital approximately a m onth ago in which case it was around 10. 1. Regarding the urinary tract infection, her risk factors for UTI include urinary incontinence and she is also postmenopausal. We will send her urine for culture. We will place her on Rocephin for n ow pending the results of her culture. 2. For anemia, this could be blood loss from surgery as her stool guaiac is negative, we will go ahe ad and obtain another occult blood. We will also get iron studies as well and further recommendation s will be based on the results of these tests. 3. With regards to her recent bypass and history of coronary artery disease, this appears to be stab le. We will continue her usual medications including the aspirin until which time it is determined t hat she has suffered a GI bleed. In the meantime, we will place her on a proton pump inhibitor as a precaution. She will be admitted full admission due to the generalized weakness and advanced age and recent bypass surgery.
[2017-10-04] MEDS ORDERED: HumaLOG 300 UNITS/3 ML VIAL SC PRN ×2 (00:40)
[2017-10-04] MEDS ORDERED: Mag-Al 1200 mg/1200 mg/30 ML UDCUP PO PRN (00:40)
[2017-10-04] MEDS ORDERED: Milk Of Magnesia 30 ML UDCUP PO PRN (00:40)
[2017-10-04] MEDS ORDERED: Acetaminophen 325 MG TAB PO PRN (00:40)
[2017-10-04] MEDS ORDERED: cefTRIAXone\\ROCEPHIN 1 GM in Sodium Chloride 0.9% 100 ML IVPB SCH (00:40)
[2017-10-04] MEDS ORDERED: Dextrose 50% Abboject 50 ML SYRINGE SLOW IVP PRN (00:40)
[2017-10-04] MEDS ORDERED: HYDROcodone/Acetaminophen 5/325 mg Tablet PO PRN (00:40)
[2017-10-04] MEDS ORDERED: Dextrose 5% in Water 1,000 ML IV PRN (00:40)
[2017-10-04 00:46] VITALS: BMI 31.2
[2017-10-04 01:28] LABS: Iron 42 ug/dL (50-170); Iron Binding Capacity, Total 241 mcg/dL (265-497)
[2017-10-04 05:08] LABS: #Basophils 0.1 thou/uL (0.0-0.2); #Eosinphils 0.1 thou/uL (0.0-0.7); #Lymphocytes 2.3 thou/uL (1.20-3.40); #Monocytes 0.8 thou/uL (0.11-0.59); #Neutrophils 5.8 thou/uL (1.40-6.50); %Basophils 0.6 % (0.0-1.0); %Eosinophils 1.5 % (0.0-10.0); %Monocytes 8.6 % (0.0-10.0); %Neutrophils 64.2 % (42.0-75.0); Mean Corpuscular HGB CONC 31.5 g/dL (32.0-36.0); Mean Corpuscular Hemoglobin 29.6 pg (27.0-31.0); Mean Corpuscular Volume 94.1 fl (81.0-99.0); Mean Platelet Volume 7.2 fL (7.4-10.4); Platelet Count 320 thou/uL (130-400); Red Blood Cell (RBC) Count 2.37 mill/uL (4.20-5.40)
[2017-10-04 05:28] LABS: Anion Gap 11 mmol/L (10-20); BUN (Urea Nitrogen) 18 mg/dL (9.8-20.1); Calc. Creatinine Clearance 87 mL/min (70-130); Calcium 8.5 mg/dL (7.8-10.44); Carbon Dioxide 24 mmol/L (23-31); Chloride 107 mmol/L (98-107); Estimated GFR-MDRD 79; Glucose 113 mg/dL (83-110); Potassium 3.9 mmol/L (3.5-5.1); Sodium 138 mmol/L (136-145)
[2017-10-04] MEDS ORDERED: Enoxaparin Sodium 30 MG/0.3 ML SYRINGE SC SCH (09:00)
[2017-10-04] MEDS: Aspirin 325 mg Enteric Coated Tablet PO SCH (09:17)
[2017-10-04] MEDS: Docusate 100 MG CAP PO SCH ×2 (09:18→20:44)
[2017-10-04] MEDS: metFORMIN XR 500 MG TAB PO SCH (09:18)
[2017-10-04] MEDS: Lisinopril 10 MG TAB PO SCH (09:20)
[2017-10-04] MEDS: Metoprolol Tartrate 25 MG TAB PO SCH ×2 (09:20→20:46)
--- NOTE | 2017-10-04 14:04 | PDOC.PN ---
- Subjective Encounter Start Date: 10/04/17 Encounter Start Time: 13:50 Subjective: f/u for UTI and generalized weakness. Currently on Rocephin and final -: Ucx pending. No prior hx of PUD, ulcers or endoscopy. Does admit to -: dark stools. - Objective Resuscitation Status: Resuscitation Status DNR:Do Not Resuscitate MAR Reviewed: Yes Vital Signs & Weight: Vital Signs (12 hours) Temp Pulse Resp BP BP Pulse Ox 10/04/17 09:20 102/64 10/04/17 08:35 98.5 F 88 18 89/52 L 96 10/04/17 08:00 98.5 F 88 18 96 10/04/17 04:00 97.6 F 89 18 124/75 97 Weight Admit Weight 176 lb 4 oz Weight 176 lb 4 oz Result Diagrams: 10/04/17 01:01 10/04/17 01:01 Additional Labs: Accuchecks 10/04/17 10/04/17 11:33 04:35 POC Glucose 154 H 183 H Microbiology 10/03/17 Unknown Stool - Pending Stool Occult Blood (DULCE) - Final Laboratory Tests 10/03/17 10/04/17 10/04/17 17:40 01:01 01:01 Hgb 8.1 L Iron 42 L TIBC 241 L Ferritin 70.60 Phys Exam - Physical Examination Constitutional: NAD pale appearing HEENT: PERRLA, oral pharynx no lesions Neck: no JVD, supple Respiratory: no wheezing, clear to auscultation bilateral Cardiovascular: RRR Gastrointestinal: soft, non-tender, no distention, positive bowel sounds Musculoskeletal: no edema, pulses present Neurological: normal sensation, moves all 4 limbs Psychiatric: A&O x 3 Skin: normal turgor, cap refill <2 seconds Dx/Plan (1) UTI (urinary tract infection) Status: Acute Comment: Continue Rocephin, await final Ucx results (2) Normocytic anemia Code(s): D64.9 - ANEMIA, UNSPECIFIED Status: Chronic Comment: Iron- deficiency component, check 2nd guaiac, consider GI consult, repeat H/H in am (3) Generalized weakness Code(s): R53.1 - WEAKNESS Status: Acute Comment: PT evaluation for functional assessment (4) CAD (coronary artery disease) Code(s): I25.10 - ATHSCL HEART DISEASE OF [place] CORONARY ARTERY W/O ANG PCTRS Status: Chronic Comment: chronic, stable (5) DM II (diabetes mellitus, type II), controlled Code(s): E11.9 - TYPE 2 DIABETES MELLITUS WITHOUT COMPLICATIONS Status: Chronic Comment: Continue Metformin, ISS (6) Hypertension Code(s): I10 - ESSENTIAL (PRIMARY) HYPERTENSION Status: Chronic Qualifiers: Hypertension type: essential hypertension Qualified Code(s): I10 - Essential (primary) hypertension Comment: continue Lisinopril and Metoprolol - Plan out of bed/ambulate, DVT proph w/SCDs Stable overall -: Continue Protonix 40mg daily -: Consult GI service for endoscopy -: D/C Lovenox -: AM lab: CBC * .
[2017-10-04] MEDS: Ferrous Sulfate 325 MG TAB PO SCH (18:25)
[2017-10-04] MEDS: Rosuvastatin 20 MG TAB PO SCH (20:44)
[2017-10-04] MEDS: cefTRIAXone\\ROCEPHIN 1 GM, Syringe 0.4 ML in Sterile Water 9.6 ML SLOW IVP SCH (21:03)
[2017-10-04] MEDS: Latanoprost 0.005% Ophth Soln 2.5 ml Bottle EA EYE SCH (22:11)
[2017-10-05 05:21] LABS: Band 2 % (5-11); Hemoglobin 7.3 g/dL (12.0-16.0); Lymphocytes 26 % (21-51); MDiff Complete? YES; Mean Corpuscular HGB CONC 31.8 g/dL (32.0-36.0); Mean Corpuscular Hemoglobin 29.7 pg (27.0-31.0); Mean Corpuscular Volume 93.4 fl (81.0-99.0); Mean Platelet Volume 6.7 fL (7.4-10.4); Metamyelocyte 1 % (0-0); Monocytes 7 % (0-10); Neutrophil 64 % (42-75); PLT Morphology Comment Appears Adequate; Platelet Count 340 thou/uL (130-400); Red Blood Cell (RBC) Count 2.45 mill/uL (4.20-5.40); White Blood Cell (WBC) Count 7.5 thou/uL (4.8-10.8)
--- NOTE | 2017-10-05 06:38 | CON ---
DATE OF CONSULTATION: 10/04/2017 REFERRING PHYSICIAN: [facility] Blaine Marcel[facility] REASON FOR CONSULTATION: Anemia and history of black tarry stool. HISTORY OF PRESENT ILLNESS: MS. Abbie Manzano is a very pleasant 76-year-old female w ho had recent bypass surgery. The patient went home surgery and was doing very well. The patient ca me back to the ER because of history of dysuria and also frequent urination. She was found to have u rinary tract infection and hospitalized. The patient was found to have anemia on admission. The adm itting hemoglobin was 8.1 and dropped to 7. The patient tells me she has had some black tarry stool ever since she had the bypass surgery. She also felt sick to her stomach and was vomiting for a coup le of days. These black tarry stool started subsequently after she had bypass surgery. However, she has not had any bleeding with the black tarry stool. The patient has no abdominal pain. She has no prior history of peptic ulcer. The patient had similar episodes in the past. The patient has had r ecurrent UTIs in the past and was seen by Dr. Ahmadi in the past. Subsequently, referred to Dr. Trey Rios because of some abnormal kidney function. Dr. Rios told her that her kidneys are fine and on evaluation was found to have type 2 diabetes mellitus. She was also found to have markedly el evated blood pressure with adequate control of blood pressure. The patient has had longstanding dillan nary disease. In 2005, I think she had a coronary artery stent placement in 1 vessel. Subsequently, she had what appears to balloon dilation, I think 3 to [address]. The patient has been feeling extremely weak and exhausted energy and was seen by Dr. Toledo and underwent cardioversion . She was found to have coronary artery disease and has undergone bypass surgery. Since her bypass surgery, her energy level is better. She is eating well. Exercise tolerance is very good. The yoon ent has no other relevant history. ALLERGIES: None. SOCIAL HISTORY: The patient does not smoke or drink alcohol. MEDICAL ILLNESSES: 1. Longstanding coronary artery disease, status post stent placement in the past, status post angiop lasty and subsequently bypass graft last month in this hospital. 2. Type 2 diabetes mellitus. 3. Hypertension. 4. Hyperlipidemia. 5. History of urinary incontinence. 6. History of recurrent UTI and has been seen by Dr. Ahmadi in the past. SURGERIES: Status post coronary artery bypass graft. No evidence of surgeries except for the bypass graft. FAMILY HISTORY: Heart disease in mother's side of the family. Mother had lipoma. Father, hypertens ion. MEDICATIONS: List reviewed. REVIEW OF SYSTEMS: Reviewed. Constitutional: No history of fever, no night sweats. No weight loss . Her energy level is better now after bypass surgery. Respiratory: No history of chronic cough, h emoptysis, dyspnea. Cardiovascular: No chest pain, no palpitation, no dyspnea, orthopnea, or PND. Gastrointestinal: No abdominal pain, no nausea, no vomiting. History of tarry stool over the last s everal weeks. No history of hematochezia. Genitourinary: History of dysuria, frequent urination. Musculoskeletal: Unremarkable. Neuroendocrine: Not relevant. Neuropsychiatric: Not relevant. PHYSICAL EXAMINATION: GENERAL: The patient is a very pleasant female who appears very comfortable. He is i n no distress. VITAL SIGNS: Stable. She is afebrile. Pulse is around 78, blood pressure 130/80. HEENT: Conjunctivae clear. NECK: Supple. No adenitis or thyromegaly noted. CARDIOVASCULAR: First and second heart sounds normal. LUNGS: Clear to auscultation. ABDOMEN: Soft to palpate. Abdomen is nontender. There is no organomegaly. No masses. Bowel sound s are normal. EXTREMITIES: Reveal no edema. LABORATORY: WBC 8100, hemoglobin 8.1 and dropping down to 7 today, hematocrit 26.3, platelet count 3 06,000. Sodium 136, potassium 3.8, chloride 106, bicarbonate 23, BUN 19, creatinine 0.85, glucose 13 0. Urinalysis: Nitrite positive, large leukocyte esterase, 4+ bacteria. Although, she has had ryan k tarry stool. Her stool guaiac was negative on admission. CLINICAL IMPRESSION: 1. A 76-year-old female with recent bypass surgery and history of black tarry stool. Her blood count has dropped down to 8.1 and today is 7. However, she has had negative stool exam fo r blood. From the history, it appears she has lost weight significantly recently. She does initiall y have abdominal pain, no nausea, no vomiting. 2. Hypertension. 3. Type 2 diabetes mellitus. 4. Hyperlipidemia. 5. Recurrent urinary tract infection. 6. Coronary artery bypass graft. RECOMMENDATIONS: 1. Follow up H&H. 2. Empiric PPI therapy. 3. We will plan EGD tomorrow. I did explain to Ms. Manzano about the EGD, procedure and the risks, e tc. She is agreeable. I will plan for EGD tomorrow and I will make further recommendations.
[2017-10-05] MEDS: Metoprolol Tartrate 25 MG TAB PO SCH ×2 (07:52→20:04)
[2017-10-05] MEDS: metFORMIN XR 500 MG TAB PO SCH (11:15)
[2017-10-05] MEDS: Aspirin 325 mg Enteric Coated Tablet PO SCH (11:15)
[2017-10-05] MEDS: Docusate 100 MG CAP PO SCH ×2 (11:16→20:04)
[2017-10-05] MEDS: Lisinopril 10 MG TAB PO SCH (11:16)
[2017-10-05] MEDS: Ferrous Sulfate 325 MG TAB PO SCH ×2 (11:16→17:17)
--- NOTE | 2017-10-05 14:50 | PDOC.PN ---
- Subjective Encounter Start Date: 10/05/17 Encounter Start Time: 14:30 Subjective: f/u for acute/subacute anemia with EGD showing duodenal ulcer -: with recommendations for Protonix daily. Pt feeling better overall - Objective Resuscitation Status: Resuscitation Status DNR:Do Not Resuscitate MAR Reviewed: Yes Vital Signs & Weight: Vital Signs (12 hours) Temp Pulse Resp BP BP BP Pulse Ox 10/05/17 11:25 97.9 F 87 18 93/46 L 97 10/05/17 11:16 93/46 L 10/05/17 08:00 98.3 F 93 14 10/05/17 07:37 98.3 F 93 14 120/83 98 10/05/17 06:00 60 108/56 L Weight Admit Weight 176 lb 4 oz Weight 176 lb 4 oz I&O: 10/04/17 10/05/17 10/06/17 06:59 06:59 06:59 Intake Total 530 Balance 530 Result Diagrams: 10/05/17 04:52 10/04/17 01:01 Additional Labs: Accuchecks 10/05/17 10/05/17 10/04/17 11:06 04:45 21:02 POC Glucose 144 H 127 H 123 H 10/04/17 16:23 POC Glucose 120 H Microbiology 10/03/17 Unknown Stool - Pending Stool Occult Blood ([facility]CE) - Final Laboratory Tests 10/03/17 10/04/17 10/04/17 17:40 01:01 01:01 Hgb 8.1 L Iron 42 L TIBC 241 L Ferritin 70.60 10/04/17 01:01 Hgb 7.0 L Iron TIBC Ferritin Phys Exam - Physical Examination Constitutional: NAD HEENT: PERRLA, oral pharynx no lesions Neck: no JVD, supple Respiratory: no wheezing, clear to auscultation bilateral Cardiovascular: RRR Gastrointestinal: soft, non-tender, no distention, positive bowel sounds Musculoskeletal: no edema, pulses present Neurological: normal sensation, moves all 4 limbs Psychiatric: A&O x 3 Skin: normal turgor, cap refill <2 seconds Dx/Plan (1) UTI (urinary tract infection) Status: Acute Comment: Continue Rocephin, await final Ucx results (2) Normocytic anemia Code(s): D64.9 - ANEMIA, UNSPECIFIED Status: Chronic Comment: Secondary to duodenal ulcer, FeSO4 replacement, repeat H/H in am (3) Generalized weakness Code(s): R53.1 - WEAKNESS Status: Acute Comment: PT evaluation for functional assessment (4) CAD (coronary artery disease) Code(s): I25.10 - ATHSCL HEART DISEASE OF [place] CORONARY ARTERY W/O ANG PCTRS Status: Chronic Comment: chronic, stable (5) DM II (diabetes mellitus, type II), controlled Code(s): E11.9 - TYPE 2 DIABETES MELLITUS WITHOUT COMPLICATIONS Status: Chronic Comment: Continue Metformin, ISS (6) Hypertension Code(s): I10 - ESSENTIAL (PRIMARY) HYPERTENSION Status: Chronic Qualifiers: Hypertension type: essential hypertension Qualified Code(s): I10 - Essential (primary) hypertension Comment: continue Lisinopril and Metoprolol - Plan out of bed/ambulate, DVT proph w/SCDs Stable overall -: Continue Rocephin another 24h then d/c -: FeSO4 325mg BID -: Protonix 40mg po Daily -: AM lab: H/H * Home in am
[2017-10-05] MEDS ORDERED: Lidocaine 1% PF 5 ML VIAL ONE (15:10)
[2017-10-05] MEDS ORDERED: Propofol 200 MG/20 ML VIAL ONE (15:10)
[2017-10-05] MEDS: Rosuvastatin 20 MG TAB PO SCH (20:04)
[2017-10-05] MEDS: Latanoprost 0.005% Ophth Soln 2.5 ml Bottle EA EYE SCH (20:05)
--- NOTE | 2017-10-05 20:22 | OP ---
DATE OF PROCEDURE: 10/05/2017 OPERATIVE PROCEDURE: Esophagogastroduodenoscopy with biopsy. PREOPERATIVE DIAGNOSES: A 76-year-old female with anemia, history of melena. She is undergoing esophagogastroduodenoscopy. POSTOPERATIVE DIAGNOSES: 1. Normal esophagus. 2. Two to three small ulcerations of the pyloric channel. 3. A large ulceration in the duodenal bulb. At time of endoscopy, no active bleeding was seen. PROCEDURE IN DETAIL: The patient was placed on her left lateral position and was given sedation by A nesthesia Department. A [employer]ax video gastroscope under direct vision was passed down the oropharynx, past the gastroesophageal junction, into the stomach and subsequently into the descending duodenum. The esophageal mucosa appeared normal. In the GE junction, no pathology seen. Retroflexion failed to show any fundus or cardia. In the gastric body, no pathology seen. The gastric antrum shows 2-3 small ulcerations and the ulcer located on the pyloric channel. No active bleeding seen. The duoden al bulb showed a large ulceration. The ulcer measured approximately 1.5 cm. The base also appears v franky clean and does not show any evidence of recent bleeding. In the descending duodenum, no patholog y seen. Biopsies of the gastric antrum and gastric body. The stomach was decompressed and the scope removed. RECOMMENDATIONS: 1. Omeprazole 40 mg once a day. 2. Iron supplement. 3. If she does well without any recurrence of bleeding, consider discharge home with the above medic ation. The patient will come back to see me in the near future at my office.
[2017-10-05] MEDS: cefTRIAXone\\ROCEPHIN 1 GM, Syringe 0.4 ML in Sterile Water 9.6 ML SLOW IVP SCH (21:33)
[2017-10-06 06:05] LABS: Platelet Count 374 thou/uL (130-400)
[2017-10-06] MEDS: Metoprolol Tartrate 25 MG TAB PO SCH (09:18)
[2017-10-06] MEDS: Aspirin 325 mg Enteric Coated Tablet PO SCH (09:19)
[2017-10-06] MEDS: Lisinopril 10 MG TAB PO SCH (09:19)
[2017-10-06] MEDS: metFORMIN XR 500 MG TAB PO SCH (09:19)
[2017-10-06] MEDS: Docusate 100 MG CAP PO SCH (09:20)
[2017-10-06] MEDS: Ferrous Sulfate 325 MG TAB PO SCH (09:20)
[2017-10-06 11:41] VITALS: BP 105/61; TEMP 98.3
--- NOTE | 2017-10-06 12:19 | DIS ---
DATE OF ADMISSION: 10/03/2017 DATE OF DISCHARGE: 10/06/2017 DISCHARGE DIAGNOSES: 1. Acute/subacute normocytic anemia secondary to suspected gastrointestinal blood loss. 2. Duodenal ulcer. 3. Urinary tract infection without identified organism. 4. Generalized weakness secondarily to anemia, improved. 5. Coronary artery disease, chronic and stable. 6. Diabetes mellitus type 2, controlled. 7. Hypertension, stable. CONSULTATION: Dr. Hoyt with GI Service. PERTINENT LABORATORY DATA AND X-RAY FINDINGS: Serum iron level 42, TIBC 241 and ferritin 70.6. LFTs within normal limits. Albumin 3.7 and lipase 24. CBC showed hemoglobin ranging between 7.0-8.1, MC V 93. Stool Hemoccult dated 10/03/2017 negative. HOSPITAL COURSE: Patient was admitted to the medical floor after initially presenting with generaliz ed weakness suspected secondary to urinary tract infection initiated on IV antibiotic therapy with Ro cephin. A specific urine culture was not performed and there was no identified organism. The patien t did receive IV antibiotic therapy throughout the hospital course after initial urinalysis was suspi cious for infectious process. The patient was also noted with concomitant anemia with appearance of acute on subacute process. Stool Hemoccult was negative x1. However, patient was evaluated by the [facility] I Service after a specific change in her hemoglobin status over the last 4-8 weeks prior to this eval uation. The patient underwent EGD evaluation on 10/05/2017 showing a large ulceration of the duodena l bulb and 2-3 small ulcerations of the pyloric channel. No specific active bleeding was identified during this exam with current recommendations to continue proton pump inhibitor and iron supplementat ion. The patient overall remained clinically stable with serial hemoglobin and hematocrit showing he moglobin stable in the low 7 range. The patient is ready for discharge on 10/06/2017. DISCHARGE MEDICATIONS: 1. Enteric coated aspirin 325 mg p.o. daily, hold x3 days. 2. Ferrous sulfate 325 mg 1 tab p.o. b.i.d. 3. Protonix 40 mg p.o. at bedtime. 4. Latanoprost 0.05% 1 drop to each eye at bedtime. 5. Lisinopril 10 mg 1 tab p.o. daily. 6. Metformin XR 500 mg p.o. daily. 7. Lopressor 12.5 mg p.o. b.i.d. 8. Macrobid 100 mg p.o. b.i.d. x5 days. 9. Crestor 20 mg p.o. at bedtime. FOLLOWUP: The patient to follow up with her primary care provider, Dr. Nash Mcfadden within 7 days of discharge. Patient will follow up with Dr. Hoyt with GI Service and to call his office for appointment time and date. CONDITION ON DISCHARGE: Stable. ACTIVITY: Ad sebastián. DIET: Heart healthy and ADA. SPECIAL INSTRUCTIONS: Recommend repeat CBC evaluation at first followup visit with primary care prov ider. CODE STATUS: DO NOT RESUSCITATE. DISPOSITION: Home 10/06/2017. Total time preparing and coordinating discharge is 32 minutes.
== END 2017-10-06 11:43 | disposition home or self-care (01) | DRG 811 ==
LOC: ERS 16:54 → T4-A 21:15
PROVIDERS: ADMIT Internal Medicine; ATTEND Internal Medicine
PROC: 0DB68ZX Excision of Stomach, Via Natural or Artificial Opening Endoscopic, Diagnostic (ICD-10-PCS; principal; 2017-10-05)
PROC: 0DB78ZX Excision of Stomach, Pylorus, Via Natural or Artificial Opening Endoscopic, Diagnostic (ICD-10-PCS; 2017-10-05)
DX: D62 Acute posthemorrhagic anemia (principal); K26.4 Chronic or unspecified duodenal ulcer with hemorrhage; K25.4 Chronic or unspecified gastric ulcer with hemorrhage; N39.0 Urinary tract infection, site not specified; E11.9 Type 2 diabetes mellitus without complications; I25.10 Atherosclerotic heart disease of native coronary artery without angina pectoris; I10 Essential (primary) hypertension; Z95.1 Presence of aortocoronary bypass graft; Z87.440 Personal history of urinary (tract) infections; Z79.82 Long term (current) use of aspirin; R32 Unspecified urinary incontinence; Z66 Do not resuscitate
CPT/HCPCS: 36415; 36416; 80048; 80053; 81003; 81015; 82274; 82553; 82728; 83540; 83550; 83690; 84484; 85007; 85014; 85018; 85025; 85027; 85049; 86850; 86900; 86901; 88305; 88312; 93005; 96361; 96374; 96375; A4216; J0696; J1650; J2001; J2405; J2704

== ENCOUNTER 2022-04-02 21:19 | Emergency (ER) | payer MEDICARE, BC ==
[2022-04-02 21:53] LABS: #Eosinphils 0.1 thou/uL (0.0-0.7); #Lymphocytes 2.8 thou/uL (1.20-3.40); #Monocytes 0.8 thou/uL (0.11-0.59); #Neutrophils 6.2 thou/uL (1.40-6.50); %Basophils 0.4 % (0.0-1.0); %Eosinophils 0.8 % (0.0-10.0); %Lymphocytes 28.2 % (21.0-51.0); %Monocytes 7.9 % (0.0-10.0); %Neutrophils 62.8 % (42.0-75.0); Hemoglobin 15.4 g/dL (12.0-16.0); Mean Corpuscular HGB CONC 33.2 g/dL (32.0-36.0); Mean Corpuscular Hemoglobin 30.5 pg (27.0-31.0); Mean Corpuscular Volume 91.9 fL (78.0-98.0); Mean Platelet Volume 8.2 fL (7.4-10.4); Platelet Count 219 thou/uL (130-400); RBC Distribution Width 13.6 % (11.5-14.5); Red Blood Cell (RBC) Count 5.06 mill/uL (4.20-5.40); White Blood Cell (WBC) Count 9.9 thou/uL (4.8-10.8)
[2022-04-02 22:15] LABS: ALT (SGPT) 16 U/L (8-55); AST (SGOT) 19 U/L (5-34); Albumin 4.4 g/dL (3.4-4.8); Alkaline Phosphatase 90 U/L (40-110); Anion Gap 13 mmol/L (10-20); BUN (Urea Nitrogen) 13 mg/dL (9.8-20.1); Bilirubin, Total 0.4 mg/dL (0.2-1.2); Calc. Creatinine Clearance 0 mL/min (70-130); Calcium 9.3 mg/dL (7.8-10.44); Carbon Dioxide 25 mmol/L (23-31); Chloride 107 mmol/L (98-107); Estimated GFR 69; Globulin 3.2 g/dL (2.4-3.5); Glucose 102 mg/dL (83-110); Potassium 3.8 mmol/L (3.5-5.1); Protein, Total 7.6 g/dL (5.8-8.1); Sodium 141 mmol/L (136-145)
[2022-04-02] MEDS ORDERED: Lisinopril 10 MG TAB ONE (22:45)
[2022-04-02] MEDS ORDERED: Metoprolol Tartrate 25 MG TAB ONE (22:45)
== END 2022-04-02 23:51 | disposition home or self-care (01) ==
LOC: ERS 21:19
DX: I10 Essential (primary) hypertension (principal); I25.10 Atherosclerotic heart disease of native coronary artery without angina pectoris; I48.91 Unspecified atrial fibrillation; E11.9 Type 2 diabetes mellitus without complications; E78.00 Pure hypercholesterolemia, unspecified; Z79.899 Other long term (current) drug therapy
CPT/HCPCS: 80053; 85025; 93005

== ENCOUNTER 2024-03-31 16:38 | Emergency (ER) | payer MEDICARE, BC ==
[2024-03-31 17:05] LABS: #Basophils 0.03 10x3/uL (0.0-0.2); #Eosinphils Less than 0.03 10x3/uL (0.0-0.7); %Basophils 0.2 % (0.0-1.0); %Eosinophils 0.2 % (0.0-10.0); %Monocytes 7.5 % (0.0-10.0); %Neutrophils 78.7 % (42.0-75.0); Hematocrit 38.2 % (36.0-47.0); Hemoglobin 12.3 g/dL (12.0-16.0); Mean Corpuscular HGB CONC 32.2 g/dL (32.0-36.0); Mean Corpuscular Hemoglobin 30.1 pg (27.0-31.0); Mean Corpuscular Volume 93.4 fL (78.0-98.0); Mean Platelet Volume 10.1 fL (7.4-10.4); Platelet Count 234 10x3/uL (130-400); RBC Distribution Width 14.6 % (11.5-14.5); Red Blood Cell (RBC) Count 4.09 mill/uL (4.20-5.40)
[2024-03-31 17:20] LABS: ALT (SGPT) 14 U/L (8-55); AST (SGOT) 17 U/L (5-34); Albumin 3.7 g/dL (3.4-4.8); Alkaline Phosphatase 63 U/L (40-110); Anion Gap 13 mmol/L (10-20); BUN (Urea Nitrogen) 30 mg/dL (9.8-20.1); Bilirubin, Total 0.5 mg/dL (0.2-1.2); Calc. Creatinine Clearance 0 mL/min (70-130); Calcium 8.8 mg/dL (7.8-10.44); Carbon Dioxide 24 mmol/L (23-31); Chloride 105 mmol/L (98-107); Estimated GFR 46; Globulin 2.8 g/dL (2.4-3.5); Glucose 152 mg/dL (83-110); Potassium 4.4 mmol/L (3.5-5.1); Protein, Total 6.5 g/dL (5.8-8.1); Sodium 138 mmol/L (136-145)
[2024-03-31 17:26] LABS: Troponin I Less than 0.010 ng/mL (< 0.028)
[2024-03-31] MEDS ORDERED: Acetaminophen 500 MG TAB ONE (20:41)
[2024-03-31 21:09] LABS: Bacteria/HPF 4+ HPF (None Seen); Bilirubin Negative (Negative); Blood, Urine Trace (Negative); CAUTI Indications for Culture Pelvic or flank pain; Clarity Turbid (Clear); Glucose, Urine (Dipstick) Greater than 1000 mg/dL (Negative); Ketone, Urine Negative (Negative); Leukocyte 500 Leu/uL (Negative); Nitrite Negative (Negative); Protein, Urine (Dipstick) 10 mg/dL (Neg-Trace); RBC/HPF 0-3 HPF (0-3); Specific Gravity, Urine 1.012 (1.002-1.036); Urobilinogen Normal mg/dL (Less than 2); WBC/HPF Greater than 50 HPF (0-3)
[2024-03-31 21:11] LABS: Urine Culture Reflex Yes Yes
[2024-03-31] MEDS ORDERED: Cephalexin 250 MG CAP ONE (22:35)
== END 2024-03-31 22:55 | disposition home or self-care (01) ==
LOC: ERS 16:38
DX: S09.90XA Unspecified injury of head, initial encounter (principal); S70.11XA Contusion of right thigh, initial encounter; N39.0 Urinary tract infection, site not specified; I25.10 Atherosclerotic heart disease of native coronary artery without angina pectoris; I48.91 Unspecified atrial fibrillation; E11.9 Type 2 diabetes mellitus without complications; I10 Essential (primary) hypertension; E78.00 Pure hypercholesterolemia, unspecified; W19.XXXA Unspecified fall, initial encounter; Z79.82 Long term (current) use of aspirin; Z79.899 Other long term (current) drug therapy
CPT/HCPCS: 36415; 36416; 70450; 71045; 72125; 80053; 81001; 83880; 84484; 85025; 87077; 87086; 87186; 93005

== ENCOUNTER 2024-04-03 12:03 | Emergency (ER) | payer MEDICARE, BC ==
[2024-04-03 12:58] LABS: #Basophils Less than 0.03 10x3/uL (0.0-0.2); #Eosinphils Less than 0.03 10x3/uL (0.0-0.7); %Basophils 0.2 % (0.0-1.0); %Eosinophils 0.2 % (0.0-10.0); %Lymphocytes 13.1 % (21.0-51.0); %Monocytes 7.7 % (0.0-10.0); %Neutrophils 78.6 % (42.0-75.0); Hematocrit 36.4 % (36.0-47.0); Hemoglobin 11.9 g/dL (12.0-16.0); Mean Corpuscular HGB CONC 32.7 g/dL (32.0-36.0); Mean Corpuscular Hemoglobin 29.8 pg (27.0-31.0); Mean Platelet Volume 10.5 fL (7.4-10.4); Platelet Count 234 10x3/uL (130-400); RBC Distribution Width 14.4 % (11.5-14.5)
[2024-04-03 13:17] LABS: ALT (SGPT) 15 U/L (8-55); AST (SGOT) 22 U/L (5-34); Albumin 3.7 g/dL (3.4-4.8); Alkaline Phosphatase 68 U/L (40-110); Anion Gap 16 mmol/L (10-20); BUN (Urea Nitrogen) 21 mg/dL (9.8-20.1); Bilirubin, Total 0.8 mg/dL (0.2-1.2); Calc. Creatinine Clearance 0 mL/min (70-130); Carbon Dioxide 17 mmol/L (23-31); Chloride 109 mmol/L (98-107); Estimated GFR 55; Globulin 3.2 g/dL (2.4-3.5); Glucose 171 mg/dL (83-110); Potassium 4.2 mmol/L (3.5-5.1); Protein, Total 6.9 g/dL (5.8-8.1); Sodium 138 mmol/L (136-145)
[2024-04-03 13:25] LABS: Troponin I 0.026 ng/mL (< 0.028)
== END 2024-04-03 14:48 | disposition home or self-care (01) ==
LOC: ERS 12:03
DX: N39.0 Urinary tract infection, site not specified (principal); G91.9 Hydrocephalus, unspecified; E11.9 Type 2 diabetes mellitus without complications; I10 Essential (primary) hypertension
CPT/HCPCS: 36415; 70450; 71045; 80053; 83605; 84484; 85025; 93005

== ENCOUNTER 2024-05-29 12:42 | Outpatient (CLI) | payer MEDICARE, BC | END 2024-05-29 12:43 | disposition home or self-care (01) | LOC: BICRAD 12:42 | PROVIDERS: ATTEND Family Medicine | DX: M25.562 Pain in left knee (principal); M17.12 Unilateral primary osteoarthritis, left knee ==

== ENCOUNTER 2024-06-03 07:51 | Day surgery (SDC) | payer MEDICARE, BC ==
[2024-06-03] MEDS ORDERED: Sodium Bicarbonate 2.5 MEQ/5 ML SDV ONE (08:15)
== END 2024-06-03 11:45 | disposition home or self-care (01) ==
LOC: RAD 07:51
PROVIDERS: ATTEND Neurological Surgery
PROC: 009U3ZX Drainage of Spinal Canal, Percutaneous Approach, Diagnostic (ICD-10-PCS; principal; 2024-06-03)
PROC: B01BZZZ Fluoroscopy of Spinal Cord (ICD-10-PCS; 2024-06-03)
DX: G91.9 Hydrocephalus, unspecified (principal); E11.9 Type 2 diabetes mellitus without complications
CPT/HCPCS: 36416; 62270

== ENCOUNTER 2025-07-07 14:46 | Outpatient (CLI) | payer MEDICARE, BC | END 2025-07-07 14:47 | disposition home or self-care (01) | LOC: BICMAMMO 14:46 | PROVIDERS: ATTEND Family Medicine | DX: Z12.31 Encounter for screening mammogram for malignant neoplasm of breast (principal); Z78.0 Asymptomatic menopausal state; M85.851 Other specified disorders of bone density and structure, right thigh | CPT/HCPCS: 77063; 77067; 77080 ==